=== PATIENT | female | born 1995 | race Caucasian/White ===

== ENCOUNTER → 2024-06-03 14:29 | Outpatient (REF) | payer OTHER, SELFPAY | LOC: RAD 14:29 | PROVIDERS: ATTENDING PHYSICIAN Nurse Practitioner; FAMILY PHYSICIAN Family Medicine | DX: N39.0 Urinary tract infection, site not specified (principal) | CPT/HCPCS: 76770 ==

== ENCOUNTER 2025-03-19 21:31 | Emergency (ER) | payer OTHER, SELFPAY ==
[2025-03-19 21:39] VITALS: BP 188/114
[2025-03-19 22:00] LABS: Hematocrit 42.7 % (37.0-47.0); Hemoglobin 14.3 g/dL (12.0-16.0); Mean Corp Hgb Conc. 33.5 g/dL (33.0-37.0); Mean Corpuscular Volume 87.0 fL (81.0-99.0); Nucleated Red Blood Cells % 0 %; Platelet Count 259 10^3/uL (130-400); Red Cell Dist. Width 12.4 % (11.5-14.5); Urine Character Clear (Clear)
[2025-03-19 22:06] LABS: Urine Red Blood Cell 30-40 /HPF (0-2)
[2025-03-19 22:07] LABS: Urine White Cell 26-30 /HPF (0-5)
[2025-03-19 22:23] LABS: ALT (SGPT) 17 U/L (0-35); AST (SGOT) 21 U/L (14-36); Albumin 4.8 g/dl (3.5-5.0); Alkaline Phosphatase 39 U/L (38-126); Blood Urea Nitrogen 14 mg/dl (7-17); Calcium 9.9 mg/dl (8.4-10.2); Carbon Dioxide 24 mmol/L (22-30); Chloride 105 mmol/L (98-107); Glucose 99 mg/dl (70-99); Potassium 3.6 mmol/L (3.5-5.1); Sodium 136 mmol/L (135-145); Total Protein 7.9 g/dl (6.3-8.2); eGFR > 60.00
[2025-03-19 22:36] VITALS: BMI 23.0
[2025-03-19] MEDS: ZOFRAN 4 MG IV (22:41)
[2025-03-19] MEDS: NSS 1000 IV (22:41)
[2025-03-19] MEDS: TORADOL 15 MG IV (22:42)
[2025-03-19] MEDS: ROCEPHIN 1000 MG IV (22:45)
[2025-03-19 22:47] VITALS: BP 117/90
--- NOTE | 2025-03-19 23:02 | EDRN ---
Pt complains of an interstitial cystitis flare that started yesterday and got worse in the past 2 hours. Pt with burning pain in her urethra which intensifies after she urinates. Pt has blood with urination. Intermittent lower abdominal cramping.
Nausea from the pain. No vomiting, fever/chills/cough.
[2025-03-19 23:11] LABS: HCG, Serum Qualitative Screen Negative
--- NOTE | 2025-03-20 00:07 | ED.GENMED ---
History of Present Illness
General
Chief Complaint: Urinary Symptoms
Time Seen by Provider: 03/19/25 22:16
Nursing documentation reviewed up to this point in time: agreed with
History of Present Illness
History of Present Illness:
30-year-old female presents to the ER for severe lower abdominal pain and hematuria, similar to prior episodes of interstitial cystitis. Patient has not been on any antibiotics recently. She took Pyridium at home prior to arrival without any
significant improvement in her symptoms. She states that she has had similar flares in the past which have been so severe she required IV narcotic medication. She denies any fevers or chills. No flank pain. Positive nausea with retching. No
recent change in bowel habits. She sees a local urologist for her interstitial cystitis. She has also had urinary tract infections in the past.
Past History
Past History
ED Past Medical History: Other (Interstitial cystitis)
Social History
Tobacco: Non-smoker
Phy Exam
Physical Exam
Physical Exam:
Patient is awake, alert, appears uncomfortable, tearful, diffusely tremulous, relying on mom to help her ambulate to the bathroom, head is NCAT, PERRL, EOMI mucous membranes moist, conjunctiva pink, heart regular rate and rhythm without murmurs or
ectopy, lungs are clear to auscultation without wheezes rales or rhonchi, no JVD, abdomen is soft with mild suprapubic pain on palpation, extremities without edema, GCS is 15
Course
Orders/Labs/Results
Orders:
Orders
03/19/25 21:49
Complete Blood Count/With Diff Urgent
Comprehensive Metabolic Panel Urgent
HCG, Serum Qualitative Screen Urgent
Comment: ADD ON
Urinalysis Reflex To Culture Urgent
Date Specimen was Collected: 03/19/25
Time Specimen was Collected: 21:42
Urine Microscopic Reflex Cult Urgent
Urine Culture Urgent
CHANTAL Source: U
Specimen Description:
Date Specimen was Collected: 03/19/25
Time Specimen was Collected: 21:42
03/19/25 22:23
Add On- LAB Urgent
Tests Added?: hcg qualitative
03/19/25 22:24
0.9% Sodium Chloride 1000 ml [Nss] 1,000 ml IV BOLUS
CefTRIAXone [Rocephin] 1,000 mg IV NOW STA
Ketorolac [Toradol] 15 mg IV NOW STA
Ondansetron Injectable [Zofran] 4 mg IV NOW STA
03/19/25 22:29
Sterile Water [Sterile Water For Injection] 20 ml .ROUTE .STK-MED
03/20/25 00:07
Oxycodone/Acetaminophen [Percocet 5/325] 1 tablet PO NOW STA
Abnormal Lab Results
03/19/25
21:49
WBC 14.3 H 10^3/uL
(4.8-10.8)
Absolute Neuts (auto) 7.7 H 10^3/uL
(1.4-6.5)
Absolute Lymphs (auto) 5.1 H 10^3/uL
(1.2-3.4)
Absolute Monos (auto) 1.0 H 10^3/uL
(0.1-0.6)
Ur Occult Blood Reflex 4+ A
(Negative)
Urine Nitrite (Reflex) Positive A
(Negative)
Urine Bilirubin 1+ A
(Negative)
Leukocyte Esterase Rfl 2+ A
(Negative)
Urine RBC 30-40 A /HPF
(0-2)
Urine WBC (Reflex) 26-30 A /HPF
(0-5)
Urine Bacteria (Reflex) Few A
(Negative)
Urine Albumin (Reflex) 3+ A
(Neg - Trace)
03/19/25 21:49
03/19/25 21:49
With blood count elevated at 14. Hemoglobin within normal limits. Urinalysis is consistent with infection
Vital Signs
Initial and Last Documented VS:
Initial Vital Signs
Temp Pulse Resp BP Pulse Ox
97.6 F 118 16 188/114 97
03/19/25 21:39 03/19/25 21:39 03/19/25 21:39 03/19/25 21:39 03/19/25 21:39
Last Documented Vital Signs
Temp Pulse Resp BP Pulse Ox
97.6 F 87 14 112/76 97
03/19/25 21:39 03/20/25 00:18 03/20/25 00:18 03/20/25 00:18 03/20/25 00:18
MDM/Problems Addressed
Differential Diagnosis Includes:
Differential diagnosis to consider but not limited to hemorrhagic cystitis, interstitial cystitis, along with other etiologies considered
*Pulse Oximetry
SaO2: 99
Oxygen Mode of Delivery: Room air
Patient hypoxic: no
*Critical Care Note
Total Time (30-74mins, 75-104mins- exclusive of procedures): Not Applicable
Data Reviewed
Review of Other/Old Records Reveals: Testing (I reviewed urine culture result from 01/09/2023-most recent in the electronic medical record. Patient had Staph saprophyticus which was widely susceptible)
Update Note
Update Note:
Patient feeling much better after medications administered, though she still rates her pain to be a 4 out of 10. I discussed with patient and parents present at bedside treatment for UTI. I discussed with them need for close outpatient follow-up
with urology. We discussed medication use at home. Patient given initial dose of antibiotics in the emergency department. She has Pyridium at home to take. She was given 1 dose of Percocet prior to leaving. Patient also advised to use ibuprofen
for her discomfort. She expressed understanding of discharge instructions and had no questions prior to leaving the department.
ED Attending Note
-
Portions of this chart may have been created with voice recognition software.� Occasional wrong word or��sound alike� substitutions may have occurred due to the inherent limitations of voice recognition software.
Discharge Plan
Departure
Patient Disposition: Home (Routine Discharge)
Date of Disposition: 03/20/25
Time of Disposition: 00:08
Patient with high blood pressure during this ER visit?: Yes
Discharge Problem:
UTI (urinary tract infection), Acute hemorrhagic cystitis
Instructions: Urinary Tract Infection, Adult (DC), Blood in the Urine (Hematuria), Adult (DC), BLOOD PRESSURE
Prescriptions:
New
ondansetron 4 mg tablet,disintegrating
4 mg PO Q8H PRN (Reason: nausea and vomiting) Qty: 10 0RF
sulfamethoxazole-trimethoprim [Bactrim DS] 800-160 mg tablet
1 tab PO Q12H Qty: 10 0RF
ibuprofen 600 mg tablet
600 mg PO Q8H PRN (Reason: Pain) Qty: 20 0RF
No Action
Nortrel 1/35 (28) 1-35 mg-mcg Tablet
1 tab PO DAILY
spironolactone 25 mg Tablet
25 mg PO DAILY
Referrals:
Ramiro Lopez MD [Family Provider]
Activity Restrictions/Additional Instructions:
Encourage fluids. Please continue taking Pyridium twice daily as previously prescribed by your urologist. Please contact urologist to schedule appointment for reevaluation and further care. Return to the ER for any concerns
Interventions
Interventions:
*Risk Screen - Suicide Last Done: 03/19/25 21:39
*General Assessment Last Done: 03/19/25 21:39
*Neglect/Abuse Screening Last Done: 03/19/25 22:49
*ED- Fall Risk Assessment Last Done: 03/19/25 22:49
*Nursing Disposition Last Done: 03/20/25 00:30
ED-Female Genitourinary Assessment Last Done: 03/19/25 23:01
Discharge Date and Time
Discharge Date/Time: 03/20/25 00:30
Print Language: COLOMBIAN
[2025-03-20] MEDS: PERCOCET 5/325 1 TABLET PO (00:16)
[2025-03-20 00:18] VITALS: BP 112/76
== END 2025-03-20 00:30 | disposition home or self-care (01) ==
LOC: EMR 21:31
PROVIDERS: Emergency Medicine; EMERGENCY PHYSICIAN Emergency Medicine; FAMILY PHYSICIAN Student in an Organized Health Care Education/Training Program
DX: N39.0 Urinary tract infection, site not specified (principal); R31.9 Hematuria, unspecified; R03.0 Elevated blood-pressure reading, without diagnosis of hypertension; Z87.440 Personal history of urinary (tract) infections
CPT/HCPCS: 99284; 96374; 96375 ×2; 96361; 80053; 81003; 81015; 84703; 85025; 87086; 87088

== ENCOUNTER 2025-04-08 09:24 | Outpatient (RCR) | payer OTHER, SELFPAY | END 2025-04-08 23:59 | disposition home or self-care (01) | LOC: RPT 09:24 | PROVIDERS: ATTENDING PHYSICIAN Student in an Organized Health Care Education/Training Program | DX: M54.2 Cervicalgia (principal); Z73.6 Limitation of activities due to disability; M79.602 Pain in left arm; R51.9 Headache, unspecified; R20.2 Paresthesia of skin; M79.601 Pain in right arm; R20.0 Anesthesia of skin; G89.29 Other chronic pain; Z87.820 Personal history of traumatic brain injury | CPT/HCPCS: 97010; 97110; 97112; 97140; 97162 ==

== ENCOUNTER 2025-04-27 17:54 | Outpatient (RCR) | payer OTHER, SELFPAY | END 2025-04-27 23:59 | disposition home or self-care (01) | LOC: RPT 17:54 | PROVIDERS: ATTENDING PHYSICIAN Student in an Organized Health Care Education/Training Program | DX: M54.2 Cervicalgia (principal); Z73.6 Limitation of activities due to disability; M79.602 Pain in left arm; R51.9 Headache, unspecified; R20.2 Paresthesia of skin; M79.601 Pain in right arm; R20.0 Anesthesia of skin; G89.29 Other chronic pain; Z87.820 Personal history of traumatic brain injury | CPT/HCPCS: 97110; 97112; 97140 ==

== ENCOUNTER 2025-05-30 09:24 | Outpatient (RCR) | payer OTHER, SELFPAY | END 2025-05-30 23:59 | disposition home or self-care (01) | LOC: RPT 09:24 | PROVIDERS: ATTENDING PHYSICIAN Student in an Organized Health Care Education/Training Program | DX: M54.2 Cervicalgia (principal); Z73.6 Limitation of activities due to disability; M79.602 Pain in left arm; R51.9 Headache, unspecified; R20.2 Paresthesia of skin; M79.601 Pain in right arm; R20.0 Anesthesia of skin; G89.29 Other chronic pain; Z87.820 Personal history of traumatic brain injury | CPT/HCPCS: 97110; 97112; 97140 ==